=== PATIENT | male | born 1955 | race Caucasian/White ===

== ENCOUNTER 2016-08-08 10:49 | Day surgery (SDC) | payer BC ==
[2016-07-20 10:30] VITALS: BMI 34.9
--- NOTE | 2016-07-24 15:12 | HP ---
DATE OF ADMISSION: CHIEF COMPLAINT: Left shoulder pain. 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 He does not recall a specific injury. He is having pain with overhead use and at night. He has tried medications along with previous therapy and injections. He notes he is significantly limited because of pain. PAST MEDICAL HISTORY: Significant for hypertension and hypercholesterolemia. PAST SURGICAL HISTORY: Significant for sinus surgery, throat surgery, carpal tunnel release and vasectomy. CURRENT MEDICATIONS: 1. Lisinopril. 2. Simvastatin. He denies drug allergies. FAMILY HISTORY: Significant for heart disease and cancer. SOCIAL HISTORY: Negative for current tobacco or alcohol use. A 16-point review of systems otherwise reviewed and is noncontributory. On examination, the patient is approximately 5 foot 8, 235 pounds of endomorphic habitus. HEENT exam is nonfocal. Neck is supple. On examination of his left shoulder, he is tender about the anterior subacromial space. He has moderate subacromial crepitus. Active range of motion, forward elevation 150 degrees, external rotation with arm at side 45 degrees, internal rotation to L3. Motor strength is 5-/5 for external rotation with the arm at the side, 4+/5 for abduction. Impingement and Neer test are positive. Speed test is positive. His distal neurovascular exam appears be intact in the left upper extremity. X-rays of the left shoulder to include AP and scapular outlet view show a type 2 acromion with maintained humeral head to acromial distance. IMPRESSION: 1. Left shoulder impingement with possible rotator cuff tear. 2. Left bicipital tendinosis. RECOMMENDATIONS: I talked to the patient at length regarding his treatment options. At this point, he is quite symptomatic despite conservative measures. After thorough discussion of his options, he opts to proceed with surgery. We will plan to proceed with left shoulder arthroscopic subacromial decompression with possible rotator cuff repair versus debridement. We will also consider biceps tenotomy if needed. Likely, we will perform that as an outpatient procedure. Risks and benefits were discussed at length in layman terms. The patient underwent preoperative medical evaluation by Dr. Shaikh.
--- NOTE | 2016-08-07 15:28 | HP ---
DATE OF ADMISSION: CHIEF COMPLAINT: Left shoulder pain. 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 He is having pain with overhead use and at night. He has had previous injections with only temporary relief. He notes it does limit him significantly. PAST MEDICAL HISTORY: Significant for hypercholesterolemia and hypertension. PAST SURGICAL HISTORY: Significant for sinus surgery, carpal tunnel release. CURRENT MEDICATIONS: Lisinopril and simvastatin. He denies drug allergies. FAMILY HISTORY: Significant for cancer, heart disease and deep venous thrombosis. SOCIAL HISTORY: Negative for current tobacco or alcohol use. Sixteen-point review of systems otherwise reviewed and is noncontributory. On examination, the patient is approximately 5 foot 8, 235 pounds of endomorphic habitus. HEENT exam is nonfocal. Neck is supple He is tender about the left shoulder anterior subacromial space. He has moderate subacromial crepitus. Active range of motion, forward elevation 150 degrees, external rotation with arm at side 45 degrees, internal rotation to L3. Motor strength is -5/5 for external rotation with the arm at the side, 4+/5 for abduction. Gillespie, Neer and speed tests are positive. His distal neurovascular exam otherwise appears intact in the left upper extremity. X-rays to include AP and scapular outlet views of the left shoulder obtained in the office show a type II acromion with maintained humeral head to acromial distance. IMPRESSION: 1. Left shoulder impingement with probable rotator cuff tear. 2. Left bicipital tendinitis. RECOMMENDATIONS: I talked to the patient at length regarding his treatment options. After thorough discussion, he opts to proceed with surgery. We will plan to proceed with arthroscopic evaluation with probable subacromial decompression, rotator cuff debridement versus repair, and possible biceps tenotomy. We will likely perform that as an outpatient procedure. Risks and benefits are discussed at length in layman's terms.
[~2016-08-08 10:49] MED LIST: HYDROmorphone 1 MG/ML 1 ML SYRINGE IVP PRN; LACTATED RINGERS 1,000 ML IV SCH; MIDAZOLAM 2 MG/2 ML VIAL IV PRN; ONDANSETRON 4 MG/2 ML VIAL IVP ONE; SCOPOLAMINE 1.5MG/72HR PATCH TRANSDERM ONE; ceFAZolin 2 GM in SODIUM CHLORIDE 0.9% 100 ML IVPB ONE
[2016-08-08] MEDS ORDERED: LIDOCAINE 1% 20 ML VIAL (10MG/ML) FOR IV START INTRADERMA ONE ×2 (11:15)
[2016-08-08] MEDS ORDERED: MIDAZOLAM 2 MG/2 ML VIAL IV ONE (11:51)
--- NOTE | 2016-08-08 12:03 | P.ONQ ---
Anesthesiology Proc Note - PNB - Peripheral Nerve Block Performed Left Interscalene Single Time Out Performed: Yes Procedure Start Time: :55 Procedure Stop Time: :59 Indication: Acute Post-Operative Pain, Requested by physician Sedation Type: Sedate with meaningful contact maintained Preparation: Sterile Prep Position: Supine Needle Gauge: Other (see comment) (22g stimiplex) Technique: Ultrasound Injectate: 2.0% Lidocaine (see comment for volume) (ropi .5 % 20cc plus xylo 2% with epi 15cc) Blood Aspirated: No Pain Paresthesia on Injection Noted: No Resistance on Injection: Normal Events: Uneventful and Well Tolerated
[2016-08-08] MEDS ORDERED: ONDANSETRON 4 MG/2 ML VIAL IVP ONE (12:52)
[2016-08-08] MEDS ORDERED: PHENYLEPHRINE-0.9% NACL SYG 1 MG/10 ML SYRINGE ONE (13:55)
[2016-08-08] MEDS ORDERED: MIDAZOLAM 2 MG/2 ML VIAL ONE (13:55)
[2016-08-08] MEDS ORDERED: PROPOFOL 10 MG/ML 20 ML VIAL IV ONE (13:55)
[2016-08-08] MEDS ORDERED: LIDOCAINE 2%-EPI 1:100,000 20 ML VIAL ONE (13:55)
[2016-08-08] MEDS ORDERED: fentaNYL (PF) 50 MCG/ML 2 ML AMP ONE (13:55)
[2016-08-08] MEDS ORDERED: NEOSTIGMINE 1 MG/ML 10 ML VIAL ONE (13:55)
[2016-08-08] MEDS ORDERED: ROPIVACAINE 5 MG/ML 30 ML VIAL ONE (13:55)
[2016-08-08] MEDS ORDERED: ROCURONIUM BROMIDE 10 MG/ML 10 ML VIAL IV ONE (13:55)
[2016-08-08] MEDS ORDERED: LIDOCAINE 1% INJ 10MG/ML (20 ML MDV) ONE (13:55)
[2016-08-08] MEDS ORDERED: GLYCOPYRROLATE 0.2 MG/ML 2 ML VIAL ONE (13:55)
[2016-08-08] MEDS ORDERED: LACTATED RINGERS 1,000 ML IV ONE (14:32)
--- NOTE | 2016-08-08 15:09 | P.OP ---
Date of Procedure: 08/08/16 Preoperative Diagnosis: Left shoulder impingement/partial thickness rotator cuff tear/bicipital tendinosis Postoperative Diagnosis: Partial thickness tear supraspinatus-20%, high-grade partial-thickness tear long head of biceps, superior labral tear Procedure(s) Performed: Left shoulder arthroscopic subacromial decompression/rotator cuff debridement/ superior labral debridement/biceps tenotomy Anesthesia: DARIEL, [facility] Surgeon: Nimesh Clarke Route Clerk #1: Elmer Leos Estimated Blood Loss (ml): 10 Pathology: none sent Condition: stable Disposition: PACU Indications for Procedure: The patient is a 60-year-old gentleman who presents with progressive left shoulder pain after previous injury despite conservative measures. A discussion of the risks and benefits of operative intervention versus continued conservative measures was made with the patient. He opted to proceed with surgery. Operative risks to include infection, neurovascular injury, development of blood clots, possible tendon rerupture, possible need for subsequent procedures was discussed. Informed consent was obtained. Operative Findings: As below Description of Procedure: The patient was brought to the operating room, and after induction of general anesthesia was placed into a beachchair position. Bony prominences were appropriately padded. I examined the left shoulder. There was no gross block to passive motion. The left upper extremity was prepped and draped in a normal fashion. The bony outlines the acromion, distal clavicle, and coracoid process were outlined with a skin marker. The glenohumeral joint was inflated with 50 mL of saline utilizing a spinal needle from posterior approach. A posterior portal was made through a 5 mm skin incision 1 cm medial and inferior to the posterior lateral border of the acromion. A blunt trocar was used to easily into the joint. Diagnostic arthroscopy was performed. An anterior portals made just lateral to the coracoid process entering the joint above the subscapularis tendon. The anterior labrum appeared to be intact. The subscapularis tendon appear to be intact. There was a high-grade partial- thickness tear involving the intra-articular portion of the biceps that was elected to proceed with tenotomy at this point. A superior labral tear was also noted. The biceps was released from the superior labrum with electrocautery and allowed to retract to the bicipital groove. The superior labrum was debrided back to a stable base with a motorized shaver. The posterior labrum was intact. On inspection of the rotator cuff, a partial thickness tear involving the anterior aspect the supraspinatus tendon was noted. Approximately 20% of the tendon thickness was involved. This was debrided back to a stable base with a motorized shaver. The posterior rotator cuff appeared to be intact. The inferior recess was inspected. The arthroscope was placed into the subacromial space. A lateral portal was made through a 5 mm skin incision 2 cm inferior to the anterior lateral border of the acromion. The soft tissue on the undersurface of the acromion was debrided with a motorized shaver and with electrocautery clearly defining the anterior medial and lateral borders. I also identified the distal clavicle. An anterior inferior acromioplasty is performed with a motorized carlos starting anterolateral, then extending this posteriorly, then extending this medially. I was able to convert to a flat acromion. This was verified on the posterior and lateral viewing portals. The coracoacromial ligament was detached from the anterior acromion with electrocautery. There was significant bursal thickening that was debrided with a motorized shaver. The rotator cuff appeared to be intact on the bursal surface. The arthroscope was then removed. The portals were closed with Steri-Strips. A sterile dressing was applied in addition to a brace. The patient was awoken from general anesthesia and transferred to the recovery room in good condition. Blood loss was estimated at 10 mL. No complications were incurred.
[2016-08-08 15:27] VITALS: TEMP 97.8
[2016-08-08 19:21] VITALS: RESP 18
[2016-08-08 19:23] VITALS: BP 131/79; PULSE 83
== END 2016-08-08 19:08 | disposition home or self-care (01) ==
LOC: OR 10:49
PROVIDERS: ATTEND Orthopaedic Surgery
DX: M75.112 Incomplete rotator cuff tear or rupture of left shoulder, not specified as traumatic (principal); S46.112A Strain of muscle, fascia and tendon of long head of biceps, left arm, initial encounter; X58.XXXA Exposure to other specified factors, initial encounter; M75.22 Bicipital tendinitis, left shoulder; M24.812 Other specific joint derangements of left shoulder, not elsewhere classified; M75.42 Impingement syndrome of left shoulder; E78.00 Pure hypercholesterolemia, unspecified; I10 Essential (primary) hypertension; E78.5 Hyperlipidemia, unspecified; G47.33 Obstructive sleep apnea (adult) (pediatric); Z79.899 Other long term (current) drug therapy
CPT/HCPCS: 64415; 29827; 29826; J2250; J2710; J0690; J2405; J2001; J3010; J2795; J2370; J2704

== ENCOUNTER 2019-06-04 20:40 | Emergency (ER) | payer BC ==
--- NOTE | 2019-06-04 21:53 | ED ---
Headache HPI - General Chief Complaint: Headache Stated Complaint: Facial Pain Time Seen by Provider: 06/04/19 21:17 Mode of arrival: ambulatory Limitations: no limitations - History of Present Illness Initial Comments: This patient is a 63-year-old man who presents to be evaluated for left sided facial pain. He states that he has had multiple episodes of this, but tonight's episode started approximately 30 minutes before he arrived here. The patient states that he had gone to brush his teeth and then experienced severe left facial pain that seemed to radiate to the retro-orbital area. He states that it was the worst pain that he has had. It lasted a total of 15-20 minutes and has resolved now. He states that he had tried applying ice to his face. He did not note any neurologic deficits. No sinus congestion or drainage. MD Complaint: headache Onset/Timin -: hour(s) Onset Description: gradual, now resolved, at rest Location: left, facial Severity: severe Quality: worst headache of life Consistency: now resolved Worsens With: other (Palpation) Treatments Prior to Arrival: other (Ice) - Related Data Home Medications Medication Instructions Recorded Confirmed Simvastatin 20 mg PO DAILY 07/20/16 06/17/17 Previous Rx's Medication Instructions Recorded Acetaminophen Tab [Tylenol] 650 mg PO Q6HR PRN tab 06/19/17 Levofloxacin [Levaquin] 500 mg PO DAILY #8 tab 06/19/17 Tamsulosin [Flomax] 0.4 mg PO DAILY #30 cap 06/19/17 SUMAtriptan SUCCINATE [Imitrex] 25 mg PO ONCE PRN #12 tablet 06/04/19 Allergies Allergy/AdvReac Type Severity Reaction Status Date / Time prednisone AdvReac "jittery, Verified 06/04/19 21:07 emotional" Review of Systems ROS Statement: Those systems with pertinent positive or pertinent negative responses have been documented in the HPI. ROS Other: All systems not noted in ROS Statement are negative. Constitutional: Denies: fever, chills, weakness Eyes: Denies: eye pain, eye discharge, vision change ENT: Denies: ear pain, throat pain, hearing loss, congestion Respiratory: Denies: cough, dyspnea Cardiovascular: Denies: chest pain Gastrointestinal: Denies: nausea, vomiting Neurological: Reports: as per HPI, headache. Denies: weakness, numbness, paresthesias, confusion, vertigo Past Medical History Past Medical History: Hyperlipidemia, Hypertension, Sleep Apnea/CPAP/BIPAP Additional Past Medical History / Comment(s): back pain History of Any Multi-Drug Resistant Organisms: None Reported Past Surgical History: Adenoidectomy, Orthopedic Surgery, Tonsillectomy Additional Past Surgical History / Comment(s): left meniscus sx, vasectomy, sinus & throat sx (sleep apnea). COLONOSCOPY Past Anesthesia/Blood Transfusion Reactions: Family History of Problems w/ Anesthesia Additional Past Anesthesia/Blood Transfusion Reaction / Comment(s): difficulty waking up from anesthesia "because of the succinylcholine" Past Psychological History: No Psychological Hx Reported Smoking Status: Never smoker Past Alcohol Use History: Occasional Past Drug Use History: None Reported - Past Family History Mother Family Medical History: Cancer Additional Family Medical History / Comment(s): CA: lung Father Family Medical History: Chest Pain / Angina, Coronary Artery Disease (CAD), Myocardial Infarction ([place]) Additional Family Medical History / Comment(s): ETOH & smoking abuse General Exam Limitations: no limitations General appearance: alert, in no apparent distress Head exam: Present: atraumatic, normocephalic Eye exam: Present: normal appearance, PERRL, EOMI. Absent: scleral icterus, conjunctival injection, nystagmus, periorbital swelling, periorbital tenderness ENT exam: Present: normal oropharynx, mucous membranes moist, TM's normal bilaterally, normal external ear exam Neck exam: Present: normal inspection, full ROM. Absent: tenderness, meningismus, lymphadenopathy Neurological exam: Present: alert, oriented X3, CN II-XII intact. Absent: motor sensory deficit Skin exam: Present: warm, dry, intact, normal color. Absent: rash Course Vital Signs 06/04/19 21:04 Temperature 97.8 F Pulse Rate 80 Respiratory 20 Rate Blood Pressure 161/81 O2 Sat by Pulse 98 Oximetry Disposition Clinical Impression: Cluster headaches Disposition: HOME SELF-CARE Condition: Good Instructions (If sedation given, give patient instructions): Cluster Headache (ED) Prescriptions: SUMAtriptan SUCCINATE [Imitrex] 25 mg PO ONCE PRN #12 tablet PRN Reason: Headache Is patient prescribed a controlled substance at d/c from ED?: No Referrals: Kirk Shaikh DO [Primary Care Provider] - 1-2 days Ariel Magana MD [STAFF PHYSICIAN] - 1-2 days
--- NOTE | 2019-06-04 22:30 | CT ---
EXAMINATION TYPE: CT brain wo con DATE OF EXAM: 06/04/2019 COMPARISON: None HISTORY: LEFT SIDED FACIAL PAIN CT DLP: 837 mGycm Automated exposure control for dose reduction was used. Ventricles have normal size. There is no mass effect nor midline shift. There is no sign of intracran ial hemorrhage. The calvarium is intact. Sella turcica appears normal. The bony orbits appear normal. IMPRESSION: Negative CT scan of the brain.
--- NOTE | 2019-06-04 22:34 | CT ---
EXAMINATION TYPE: CT facial bones wo con DATE OF EXAM: 06/04/2019 COMPARISON: None HISTORY: LEFT SIDED FACIAL PAIN CT DLP: 837 mGycm Automated exposure control for dose reduction was used. Multiple axial sections were obtained from the top of the frontal sinuses to the bottom of the mandib le without contrast. FINDINGS: The mandibular ring appears intact. Temporomandibular joints appear normal. The zygomatic arches appe ar normal. Nasal bone is intact. There is mild mucosal thickening right maxillary sinus. Orbital eva ins are intact. There is no evidence of retro-orbital mass. There is bilateral patency of the ostiome atal complex. There is fairly normal aeration of the sphenoid ethmoid and frontal sinuses. I see no b maggy destructive process. Maxilla is intact. The parotid glands are symmetric. Submandibular salivary glands are symmetric. IMPRESSION: Minimal right maxillary sinus mucosal thickening. Otherwise negative exam.
[2019-06-04 23:07] VITALS: BP 140/94; PULSE 75; RESP 18; TEMP 97.9
== END 2019-06-04 23:07 | disposition home or self-care (01) ==
LOC: EC 20:40
DX: G44.009 Cluster headache syndrome, unspecified, not intractable (principal); E78.5 Hyperlipidemia, unspecified; G47.30 Sleep apnea, unspecified; I10 Essential (primary) hypertension; Z79.899 Other long term (current) drug therapy; Z88.8 Allergy status to other drugs, medicaments and biological substances; Z99.89 Dependence on other enabling machines and devices
CPT/HCPCS: 70450; 70486; 99284

== ENCOUNTER → 2021-12-09 | Day surgery (SDC) | payer BC, MEDICARE ==
[2021-12-08 08:46] VITALS: BMI 37.2
[~2021-12-09] MED LIST changes: -HYDROmorphone 1 MG/ML 1 ML SYRINGE IVP PRN; -LACTATED RINGERS 1,000 ML IV SCH; +LIDOCAINE 1% (10MG/ML) FOR IV START INTRADERMA PRN; +LIDOCAINE 2% INJ 20 MG/ML (2 ML VIAL) ONE; -MIDAZOLAM 2 MG/2 ML VIAL IV PRN; -ONDANSETRON 4 MG/2 ML VIAL IVP ONE; +PROPOFOL 10 MG/ML 20 ML VIAL IV ONE; -SCOPOLAMINE 1.5MG/72HR PATCH TRANSDERM ONE; -ceFAZolin 2 GM in SODIUM CHLORIDE 0.9% 100 ML IVPB ONE
[2021-12-09] MEDS: LACTATED RINGERS 1,000 ML IV SCH ×2 (07:17→07:29)
[2021-12-09 07:23] VITALS: RESP 16; TEMP 97.6
--- NOTE | 2021-12-09 08:19 | P.PCN ---
Date of Procedure: 12/09/21 Procedure(s) Performed: BRIEF HISTORY: Patient is a 65-year-old pleasant white male scheduled for an elective colonoscopy as a part of evaluation of prior history of colon polyps. His last coloscopy was 6 years ago. PROCEDURE PERFORMED: Colonoscopy. PREOPERATIVE DIAGNOSIS: History of colon polyps. IV sedation per Anesthesia. PROCEDURE: After informed consent was obtained, the patient, was brought into the endoscopy unit. IV sedation was administered by Anesthesia under continuous monitoring. Digital rectal examination was normal. Initially the Olympus CF-160 flexible video colonoscope was then inserted in the rectum, gradually advanced into the cecum without any difficulty. Careful examination was performed as the scope was gradually being withdrawn. Ileocecal valve and the appendiceal orifice were visualized and appeared normal. Prep was excellent. Mucosa of the cecum, ascending colon, transverse colon, descending colon, sigmoid colon, and rectum appeared normal. Retroflexion was performed in the rectum and no lesions were seen. Scattered sigmoid diverticulosis. The patient tolerated the procedure well. IMPRESSION: Normal-appearing colon from rectum to cecum with no evidence of colonic neoplasia. Scattered sigmoid diverticulosis. RECOMMENDATIONS: Findings of this examination were discussed with the patient as well as his family. He was advised to have a repeat screening colonoscopy in 5 years from now because of the prior history of colon polyps..
[2021-12-09 08:24] VITALS: PULSE 74
[2021-12-09 08:39] VITALS: BP 135/87
== END ==
LOC: ORWHC2ENDO 06:59
PROVIDERS: ATTEND Internal Medicine Gastroenterology
DX: Z12.11 Encounter for screening for malignant neoplasm of colon (principal); K57.30 Diverticulosis of large intestine without perforation or abscess without bleeding; Z86.010 Personal history of colon polyps; I10 Essential (primary) hypertension; E78.5 Hyperlipidemia, unspecified; G47.33 Obstructive sleep apnea (adult) (pediatric); G50.0 Trigeminal neuralgia; Z79.899 Other long term (current) drug therapy
CPT/HCPCS: J2704; J2001; G0121; 45378